=== PATIENT | female | born 2000 | race Caucasian/White ===

== ENCOUNTER 2024-05-07 10:22 | Emergency (ER) | payer BC ==
[~2024-05-07] VITALS: Ht 157.5 cm; Wt 61.2 kg
[2024-05-07 10:45] VITALS: TEMP 97.9
[2024-05-07 12:42] VITALS: BP 108/60; O2SAT 99
== END 2024-05-07 12:53 | disposition left against medical advice (07) ==
LOC: ER 10:29
DX: F41.9 Anxiety disorder, unspecified (principal); R07.89 Other chest pain; R55 Syncope and collapse
CPT/HCPCS: 71045-TC